=== PATIENT | male | born 1950 | race Two or more races ===

== ENCOUNTER 2018-01-12 13:26 | Inpatient (IN) | payer MEDICARE ==
[~2018-01-12] VITALS: Ht 160 cm; Wt 69.4 kg
--- NOTE | 2018-01-12 14:04 | NUR ---
PATIENT TO ED DT CHEST PAIN, 04/24, SHARP, NON RADIATING SINCE YESTERDAY. PATIENT IS AWAKE AND ALERT, APPEARS IN NO DISTRESS. RESPIRATION EVEN AND UNLABORED, SKIN IS WARM TO TOUCH AND NON DIAPHORETIC. PT IS AFEBRILE. VSS. CONNECTED OT TO TELE MONITOR. EKG DONE
[2018-01-12 14:05] LABS: BASOPHILS # (AUTO) 0.3 /CMM (0.0-0.2); BASOPHILS % (AUTO) 2.8 % (0.0-2.0); EOSINOPHILS % (AUTO) 0.7 % (0.0-6.0); HEMATOCRIT 38 % (39-51); HEMOGLOBIN 12.7 g/dL (13.5-17.5); LYMPHOCYTES % (AUTO) 10.2 % (20.0-44.0); MEAN CORPUSCULAR HGB CONC 33 g/dl (31.0-36.0); MEAN CORPUSCULAR VOLUME 78 fL (80-96); MONOCYTES # (AUTO) 0.9 /CMM (0.1-1.30); MONOCYTES % (AUTO) 9.1 % (2.0-12.0); NEUTROPHILS # (AUTO) 7.1 /CMM (1.8-8.9); NEUTROPHILS % (AUTO) 77.2 % (43.0-81.0); PLATELET COUNT (AUTO) 197 /CMM (150-450); RDW COEFFICIENT OF VARIATION 16.4 (11.5-15.0); RED BLOOD CELL COUNT(AUTO) 4.84 MIL/uL (4.5-6.0); WHITE BLOOD COUNT (AUTO) 9.4 K/uL (4.3-11.0)
[2018-01-12 14:16] LABS: INR 1.21 (0.85-1.15)
[2018-01-12] MEDS ORDERED: ASPIRIN 81 MG TAB.CHEW ONE (14:30)
[2018-01-12] MEDS ORDERED: ASPIRIN 81 MG TAB.CHEW PO ONE (14:30)
--- NOTE | 2018-01-12 14:35 | NUR ---
CALLED NURSING PATIENTS TRANSPORTER AND REQUESTED A TELE BED FOR THIS PT.
[2018-01-12 14:43] LABS: BILIRUBIN,DIRECT 0.4 mg/dL (0.0-0.2); CALCIUM, SERUM 8.6 mg/dL (8.5-10.1); CREATININE 1.2 mg/dL (0.6-1.3); POTASSIUM 3.8 mmol/L (3.5-5.1); TOTAL PROTEIN, SERUM 8.7 g/dL (6.4-8.2)
[2018-01-12 14:45] LABS: TROPONIN I 0.038 ng/mL (0.00-0.056)
[2018-01-12] MEDS ORDERED: NITROGLYCERIN 0.4 MG/TAB BOTTLE SL ONE (15:00)
[2018-01-12] MEDS ORDERED: PIOG15TA8 PO (15:04)
[2018-01-12] MEDS ORDERED: SPIR25TA6 PO (15:04)
[2018-01-12] MEDS ORDERED: DIGO125T PO (15:04)
[2018-01-12] MEDS ORDERED: TIOT18CA3 IH (15:04)
[2018-01-12] MEDS ORDERED: METF-441 PO (15:04)
[2018-01-12] MEDS ORDERED: CLOP75TA15 PO (15:04)
[2018-01-12] MEDS ORDERED: ASPI-1169 PO (15:04)
[2018-01-12] MEDS ORDERED: LOSA50TA21 PO (15:04)
[2018-01-12] MEDS ORDERED: FURO-144 PO (15:04)
[2018-01-12] MEDS ORDERED: ISOS10TA2 PO (15:09)
--- NOTE | 2018-01-12 15:09 | NUR ---
PT IS ASSIGNED TO [facility], PT IS DIAGNOSED WITH CHEST PAIN, AND DR GODOY IS THE ACCEPTING MD.
[2018-01-12] MEDS ORDERED: NITROGLYCERIN 0.4 MG/TAB BOTTLE ONE (15:12)
--- NOTE | 2018-01-12 15:17 | NUR ---
REPORT GIVEN TO BRITTNEE MEDINA FOR YAMILA
--- NOTE | 2018-01-12 15:21 | NUR ---
NITROGLYCERINE #2 GIVEN SL BE=826/103 PAIN=6/10
--- NOTE | 2018-01-12 15:26 | NUR ---
3RD NITRO 0.4MG SL GIVEN UY=853/77 PAIN=5/10
[2018-01-12] MEDS ORDERED: ONDANSETRON HCL/PF 4 MG/2 ML VIAL ONE (15:43)
[2018-01-12] MEDS ORDERED: MORPHINE SULFATE INJ 4 MG/ML DISP.SYRIN ONE (15:44)
[2018-01-12 16:00] VITALS: BP 137/97
[2018-01-12] MEDS ORDERED: ONDANSETRON HCL/PF 4 MG/2 ML VIAL IV ONE (16:00)
[2018-01-12] MEDS ORDERED: MORPHINE SULFATE INJ 2 MG/ML DISP.SYRIN IV ONE (16:00)
--- NOTE | 2018-01-12 16:22 | NUR ---
Tele/RN - Admission Received patient from ER awake, A/O x 4, kosovan speaking, midlevel provider at bedside, admitted for Chest pain, labs reviewed, initial troponin was negative, CXR shows cardiomegaly. Tele shows v-paced 92, c/o left sided chest pain TX=5/10, was given Nitro SL and ASA po in ER. Patient oriented to room and use of call light. All belongings accounted. Patient ambulatory with steady gait. Skin is intact. Awaiting for Dr. Mcdermott to place in admitting orders. Addendum: 01/12/18 at 1652 by CAROL LANCASTER RN Patient refused photo to be taken. Morphine sulfate 4 mg IVP was also given in Er to relieve chest pain.
[2018-01-12] MEDS ORDERED: DEXTROSE 50%-WATER 50 ML DISP.SYRIN IV PRN (16:30)
[2018-01-12] MEDS ORDERED: ONDANSETRON HCL/PF 4 MG/2 ML VIAL IVP PRN (16:30)
[2018-01-12] MEDS ORDERED: Z GUARD REMEDY 2 OZ OINT TP PRN (16:30)
[2018-01-12] MEDS ORDERED: MAG HYDROX/AL HYDROX/SIMETH 30 ML UDC PO PRN (16:30)
[2018-01-12] MEDS ORDERED: MORPHINE SULFATE INJ 2 MG/ML DISP.SYRIN IV PRN (16:30)
[2018-01-12] MEDS ORDERED: ACETAMINOPHEN 325 MG TABLET PO PRN (16:30)
[2018-01-12] MEDS ORDERED: MAGNESIUM HYDROXIDE 30 ML UDC PO PRN (16:30)
[2018-01-12] MEDS ORDERED: HYDROCODONE/APAP 5/325MG 1 EACH TABLET PO PRN (16:30)
[2018-01-12] MEDS: BLOOD SUGAR DIAGNOSTIC 1 EACH STRIP VI SCH ×2 (17:19→21:42)
--- NOTE | 2018-01-12 17:51 | NUR ---
MATERIAL LIAISON CLOSING NOTES Patient in bed, resting comfortably with at bedside. Denies chest pain at this moment. Patient for echo complete, A.M. Labs. Patient and updated with plan of care. Safety measures in place. Bed in lowest position with call light within reach. Will endorse to oncoming nurse.
[2018-01-12] MEDS: INSULIN REGULAR, HUMAN 100 UNIT/ML 3 ML VIAL SQ PRN (19:01)
--- NOTE | 2018-01-12 19:30 | NUR ---
GASOLINE PLANT OPERATOR NOTES RECEIVED RESTING COMFORTABLY ON BED,A/O X4,SPEAK EGYPTIAN, AT BEDSIDE.CLAIMED SLIGHT CHEST PAIN 4/10 ON PAIN SCALE AND ITS TOLERABLE.SALINE LOCK RFA INTACT AND PATENT.V PACING ON TELE MONITOR.RATE OF 85.CALL LIGHT IN REACH,NEEDS ANTICIPATED.
[2018-01-12 20:00] VITALS: BP 132/99
--- NOTE | 2018-01-12 21:00 | NUR ---
REPAIR SERVICE CLERK NOTES STARTED ON LOVENOX 40MG SQ GIVEN ON RLQ.
[2018-01-12] MEDS: ENOXAPARIN SODIUM 40 MG/0.4 ML DISP.SYRIN SQ SCH (21:06)
[2018-01-12] MEDS: NITROGLYCERIN PACKET 1 GM PACKET TOP SCH (21:06)
[2018-01-12] MEDS: *INSULIN REGULAR(HUMULIN R)HUM 100 UNIT/ML VIAL SQ PRN (21:48)
[2018-01-12 22:00] VITALS: BP 132/99
[2018-01-12] MEDS ORDERED: ZOLPIDEM TARTRATE 5 MG TABLET PO PRN (22:00)
--- NOTE | 2018-01-12 22:00 | NUR ---
EDGER AUTOMATIC NOTES ACCU-CHECK BLOOD SUGAR CHECK 199,COVERED WITH HUMULIN R 3 UNITS PER SLIDING SCALE.
[2018-01-13] VITALS: BP 129/91
--- NOTE | 2018-01-13 01:00 | NUR ---
MINE ENVIRONMENTAL ENGINEER NOTES SLEEPING THIS TIME, AT BEDSIDE
[2018-01-13 04:00] VITALS: BP_SYST 124; BP_SYST 126; BP_DIAS 96
--- NOTE | 2018-01-13 05:30 | NUR ---
SPECIAL CLASS WELDER NOTES ACCU-CHECK BLOOD SUGAR CHECK 122,NO INSULIN COVERAGE
[2018-01-13] MEDS: NITROGLYCERIN PACKET 1 GM PACKET TOP SCH ×3 (05:37→21:27)
[2018-01-13] MEDS: BLOOD SUGAR DIAGNOSTIC 1 EACH STRIP VI SCH ×4 (05:39→22:43)
[2018-01-13 06:25] LABS: BASOPHILS # (AUTO) 0.1 /CMM (0.0-0.2); BASOPHILS % (AUTO) 0.7 % (0.0-2.0); EOSINOPHILS % (AUTO) 0.1 % (0.0-6.0); HEMATOCRIT 37 % (39-51); HEMOGLOBIN 11.8 g/dL (13.5-17.5); LYMPHOCYTES # (AUTO) 0.9 /CMM (0.8-4.8); LYMPHOCYTES % (AUTO) 10.2 % (20.0-44.0); MEAN CORPUSCULAR HGB CONC 32 g/dl (31.0-36.0); MEAN CORPUSCULAR VOLUME 79 fL (80-96); MONOCYTES # (AUTO) 0.9 /CMM (0.1-1.30); MONOCYTES % (AUTO) 9.9 % (2.0-12.0); NEUTROPHILS % (AUTO) 79.1 % (43.0-81.0); PLATELET COUNT (AUTO) 185 /CMM (150-450); RDW COEFFICIENT OF VARIATION 17.7 (11.5-15.0); RED BLOOD CELL COUNT(AUTO) 4.61 MIL/uL (4.5-6.0); WHITE BLOOD COUNT (AUTO) 8.8 K/uL (4.3-11.0)
[2018-01-13 06:34] LABS: CALCIUM, SERUM 8.3 mg/dL (8.5-10.1); MAGNESIUM 1.9 mg/dL (1.8-2.4); PHOSPHORUS 3.4 mg/dL (2.5-4.9); POTASSIUM 3.8 mmol/L (3.5-5.1)
--- NOTE | 2018-01-13 06:40 | NUR ---
SALES COORDINATOR NOTES SLEPT WELL AT [facility].DENIES CHEST PAIN.ADVISED NOT TO EAT BREAKFAST 'TILL SEEN BY DUTY ENGINEER.TELE READING V-PACING 86.IN NO ACUTE DISTRESS.WILL ENDORSE TO DAY NURSE FOR YAMIAL.
--- NOTE | 2018-01-13 07:25 | NUR ---
MAIL CLERK BILLS OPENING NOTES RECEIVED PATIENT AWAKE IN BED IN NO ACUTE SIGNS OF DISTRESS. AT BEDSIDE. A/O X4, SPEAK ALBANIAN ONLY, DENIES PAIN OR ANY DISCOMFORTS AT THIS TIME. ON ROOM AIR, BREATHING EVEN AND UNLABORED, NO SOB NOTED. IV ACCESS ON RFA G#20 INTACT AND PATENT. ON TELE-MONITOR WITH CURRENT READING OF V-PACING WITH HR OF 72, NO C/O CHEST PAIN VOICED AT THIS TIME. HOB ELEVATED. BED IN LOW/LOCKED POSITION WITH B/L UPPER SIDE-RAILS UP X2. CALL LIGHT IN REACH. WILL CONTINUE TO MONITOR PT. .
[2018-01-13] MEDS ORDERED: METFORMIN 850 MG TABLET PO SCH (07:30)
[2018-01-13 07:51] LABS: TROPONIN I 0.034 ng/mL (0.00-0.056)
--- NOTE | 2018-01-13 07:55 | NUR ---
RN NOTES PATIENT FOR CT [facility] WITH 3D THIS MORNING. CALLED RESIDENTIAL REAL ESTATE SALES MANAGER AND WAS INFORMED THAT PT SHOULD BE NPO AND TO GIVE AM MEDS WITH SMALL AMOUNT OF WATER AND NOT TO GIVE GLUCOPHAGE.
[2018-01-13 08:00] VITALS: BP 139/84
[2018-01-13 08:02] LABS: THYROID STIMULATING HORMONE 3.77 uIU/mL (0.358-3.74)
[2018-01-13] MEDS: ASPIRIN 325 MG TABLET PO SCH (08:10)
[2018-01-13] MEDS: PIOGLITAZONE HCL 15 MG TABLET PO SCH (08:10)
[2018-01-13] MEDS: FUROSEMIDE 40 MG TABLET PO SCH (08:11)
[2018-01-13] MEDS: LOSARTAN POTASSIUM 50 MG TABLET PO SCH ×2 (08:11→21:26)
[2018-01-13] MEDS: SPIRONOLACTONE 25 MG TABLET PO SCH (08:12)
[2018-01-13] MEDS: ISOSORBIDE DINITRATE (10MG) 10 MG TABLET PO SCH ×2 (08:12→22:44)
[2018-01-13] MEDS ORDERED: IOHEXOL-350 100 ML VIAL IV ONE (10:16)
[2018-01-13] MEDS ORDERED: IV NS 0.9% 500 ML IV ONE (10:16)
[2018-01-13] MEDS ORDERED: CT SWABBABLE VALVE TRANS SET 1 EA INFUS.SET MC ONE (10:16)
--- NOTE | 2018-01-13 11:16 | NUR ---
RN NOTES PATIENT RETURNED FROM [facility] VIA WHEELCHAIR IN NO ACUTE SIGNS OF DISTRESS. SPOKE TO BOWLING ALLEY OPERATOR CHIDI AND ICU NURSE, THEY SAID THAT GLUCOPHAGE SHOUL BE HELD X 48HRS THEN RE-START ON TUESDAY MORNING, 01/15/2018. WILL CONTINUE TO MONITOR.
--- NOTE | 2018-01-13 12:14 | NUR ---
RN NOTES PT WITH B/S OF 150MGD AT 1200, PATIENT REFUSED INSULIN COVERAGE SAYING THAT IT'S NOT THAT HIGH. WILL CONTINUE TO MONITOR.
[2018-01-13 16:00] VITALS: BP 124/93
[2018-01-13] MEDS: INSULIN REGULAR, HUMAN 100 UNIT/ML 3 ML VIAL SQ PRN (17:28)
--- NOTE | 2018-01-13 17:48 | NUR ---
Patient speaks Lithuanian, he is alert and pleasant. He lives locally with his . He is ambulatory and independent with adl's. Has no DME or homehealth reported. Family will provide ride when discharge. Addendum: 01/13/18 at 1748 by FLORECITA HOROWITZ RN Amended: Links added.
[2018-01-13] MEDS ORDERED: CLOPIDOGREL BISULFATE 75 MG TABLET PO SCH (18:00)
[2018-01-13] MEDS ORDERED: DIGOXIN 0.125 MG TABLET PO SCH (18:00)
--- NOTE | 2018-01-13 18:18 | NUR ---
MS RN CLOSING NOTES PATIENT SITTING IN CHAIR IN HIS ROOM WITH SITTING BESIDE HIM. A/O X4, SPEAK THAI ONLY, NO C/O CHEST PAIN THROUGHOUT THE DAY. ON ROOM AIR, BREATHING EVEN AND UNLABORED, NO SOB NOTED. IV ACCESS ON RFA G#18 INTACT AND PATENT, FLUSHES EASILY. HOB ELEVATED. BED IN LOW/LOCKED POSITION WITH B/L UPPER SIDE-RAILS UP X2. CALL LIGHT WITHIN REACH. ALL NEEDS AND CARE ATTENDED WELL. WILL ENDORSED TO COUNTER HELP NURSE FOR YAMILA.
--- NOTE | 2018-01-13 19:30 | NUR ---
MS RN OPENING NOTES: PATIENT NI BED, AOX4, ON ROOM AIR, BREATHING EVEN AND UNLABORED. APPEARS CALM AND IN NO DISTRESS. DENIES PAIN/ CHEST PAIN. PIV OVER RFA G 18 INTACT AND PATENT TO FLUSH. PROVIDED FOR COMFORT AND SAFETY. BED IN LOWEST AND LOCKED POSITION, SIDERAILS UP X 3, CALL LIGHT WITHIN REACH. WILL CONT TO MONITOR.
[2018-01-13 20:00] VITALS: BP 125/87
[2018-01-13] MEDS: ENOXAPARIN SODIUM 40 MG/0.4 ML DISP.SYRIN SQ SCH (21:34)
[2018-01-13 22:45] VITALS: BP 125/71
[2018-01-13] MEDS: *INSULIN REGULAR(HUMULIN R)HUM 100 UNIT/ML VIAL SQ PRN (22:49)
--- NOTE | 2018-01-13 22:50 | NUR ---
RN NOTES: BLOOD SUGAR CHECKED AT 132, HOWEVER, PATIENT REFUSED INSULIN COVERAGE AT THIS TIME. RISK AND BENEFITS EXPLAINED.
--- NOTE | 2018-01-14 00:30 | NUR ---
RN NOTES: INFORMED ARELIS RT REGARDING PATIENT'S SCHEDULED Q8 BREATHING TREATMENTS. PER RT, SHE WILL CHECK ON PATIENT TO GIVE BREATHING TREATMENT IF NEEDED AT THIS TIME. PATIENT ASLEEP NOW, BREATHING EVEN AND UNLABORED, BREATH SOUNDS CLEAR TO AUSCULTATION.
[2018-01-14] MEDS: NITROGLYCERIN PACKET 1 GM PACKET TOP SCH ×2 (05:00→13:33)
[2018-01-14 06:17] LABS: BASOPHILS # (AUTO) 0.1 /CMM (0.0-0.2); BASOPHILS % (AUTO) 1.1 % (0.0-2.0); EOSINOPHILS % (AUTO) 1.4 % (0.0-6.0); HEMATOCRIT 34 % (39-51); HEMOGLOBIN 10.9 g/dL (13.5-17.5); LYMPHOCYTES # (AUTO) 1.1 /CMM (0.8-4.8); LYMPHOCYTES % (AUTO) 13.4 % (20.0-44.0); MEAN CORPUSCULAR HGB CONC 32 g/dl (31.0-36.0); MEAN CORPUSCULAR VOLUME 79 fL (80-96); MONOCYTES # (AUTO) 0.8 /CMM (0.1-1.30); MONOCYTES % (AUTO) 9.7 % (2.0-12.0); NEUTROPHILS # (AUTO) 6.2 /CMM (1.8-8.9); NEUTROPHILS % (AUTO) 74.4 % (43.0-81.0); PLATELET COUNT (AUTO) 184 /CMM (150-450); RDW COEFFICIENT OF VARIATION 17.8 (11.5-15.0); RED BLOOD CELL COUNT(AUTO) 4.35 MIL/uL (4.5-6.0); WHITE BLOOD COUNT (AUTO) 8.3 K/uL (4.3-11.0)
[2018-01-14] MEDS: BLOOD SUGAR DIAGNOSTIC 1 EACH STRIP VI SCH ×2 (06:21→12:29)
[2018-01-14 06:37] LABS: ALBUMIN 3.1 g/dL (3.4-5.0); BILIRUBIN,TOTAL 0.8 mg/dL (0.2-1.0); CALCIUM, SERUM 8.4 mg/dL (8.5-10.1); CREATININE 1.1 mg/dL (0.6-1.3); MAGNESIUM 1.6 mg/dL (1.8-2.4); PHOSPHORUS 2.9 mg/dL (2.5-4.9); POTASSIUM 3.5 mmol/L (3.5-5.1); TOTAL PROTEIN, SERUM 6.9 g/dL (6.4-8.2)
[2018-01-14 06:47] LABS: TROPONIN I 0.056 ng/mL (0.00-0.056)
--- NOTE | 2018-01-14 06:47 | NUR ---
MS RN CLOSING NOTES: PATIENT IN BED, AOX4, ON ROOM AIR, BREATHING EVEN AND UNLABORED. APPEARS CALM AND IN NO DISTRESS. DENIES PAIN. AM BLOOD SUGAR CHECKED AT 118 MG/DL. DUE MEDS GIVEN. PROVIDED FOR COMFORT AND SAFETY. BED IN LOWEST AND LOCKED POSITION, SIDERAILS UP X 2, CALL LIGHT WITHIN REACH. WILL ENDORSE TO AM RN FOR YAMILA.
--- NOTE | 2018-01-14 07:30 | NUR ---
RECEIVED PT. IN AM ALERT AND ORIENTED X4.MALAYSIAN SPEAKING.NO COMPLAINTS OFFERED.
[2018-01-14] MEDS: IPRATROPIUM NEB FS 0.5 MG/2.5 ML AMPUL.NEB NEB SCH ×2 (07:56→15:30)
[2018-01-14 08:00] VITALS: BP 139/90
[2018-01-14] MEDS ORDERED: METFORMIN 850 MG TABLET PO SCH (08:00)
[2018-01-14] MEDS: METFORMIN 850 MG TABLET PO SCH ×2 (08:00→08:55)
[2018-01-14] MEDS: ASPIRIN 325 MG TABLET PO SCH (08:55)
[2018-01-14] MEDS: FUROSEMIDE 40 MG TABLET PO SCH (08:55)
[2018-01-14] MEDS: PIOGLITAZONE HCL 15 MG TABLET PO SCH (08:56)
[2018-01-14] MEDS: SPIRONOLACTONE 25 MG TABLET PO SCH (08:56)
[2018-01-14] MEDS: LOSARTAN POTASSIUM 50 MG TABLET PO SCH (08:56)
[2018-01-14] MEDS: ISOSORBIDE DINITRATE (10MG) 10 MG TABLET PO SCH (08:56)
--- NOTE | 2018-01-14 10:30 | NUR ---
DR. GODOY AND DR. KENDRICK IN TO SEE PT.
--- NOTE | 2018-01-14 11:00 | NUR ---
IN PT. RM. ASKING ABOUT DISCHARGE,STATES WILKINS SAID SPOUSE MAY GO HOME TODAY.
--- NOTE | 2018-01-14 11:30 | NUR ---
RN CALLING DR. GODOY ABOUT DC AND DEFERRED TO DR. KENDRICK.
[2018-01-14] MEDS: INSULIN REGULAR, HUMAN 100 UNIT/ML 3 ML VIAL SQ PRN (12:31)
[2018-01-14] MEDS ORDERED: MAGNESIUM OXIDE 400 MG TABLET PO ONE ×2 (13:00)
[2018-01-14 13:33] VITALS: BP 122/87
[2018-01-14] MEDS ORDERED: SOD FERRIC GLUC 125 MG in IV NS 0.9% 100 ML IV SCH (14:00)
--- NOTE | 2018-01-14 15:45 | NUR ---
[address] KENDRICK-RECEIVED DISCHARGE ORDER. HEP LOCK OUT,DC INSTRUCTIONS GIVEN,BELONGING SHEET SIGNED.GIVEN ALL INFO. REFUSING [facility]. PRINT OUT OF DC MEDS-ALL ALL PAPERS GIVEN TO .TAKEN TO LOBBY VIA W/C ACCOMPANIED BY MARKER MACHINE AND .
[2018-01-15] MEDS ORDERED: METFORMIN 850 MG TABLET PO SCH ×2 (08:00)
== END 2018-01-14 16:10 | disposition home or self-care (01) | DRG 303 ==
LOC: ER 13:32 → TELE 15:39 → MED 01-13 07:53
PROVIDERS: ADMIT Internal Medicine; ATTEND Internal Medicine
DX: I25.10 Atherosclerotic heart disease of native coronary artery without angina pectoris (principal); J44.9 Chronic obstructive pulmonary disease, unspecified; I11.0 Hypertensive heart disease with heart failure; I50.9 Heart failure, unspecified; E11.9 Type 2 diabetes mellitus without complications; D50.9 Iron deficiency anemia, unspecified; I35.0 Nonrheumatic aortic (valve) stenosis; M19.90 Unspecified osteoarthritis, unspecified site; Z95.810 Presence of automatic (implantable) cardiac defibrillator; Z79.84 Long term (current) use of oral hypoglycemic drugs
CPT/HCPCS: 36415; 71045-TC; 75574; 80048-TC; 80053-TC; 80061-TC; 80076-TC; 80162-TC; 82306; 82728-TC; 82962-TC; 83540-TC; 83735-TC; 84100-TC; 84439-TC; 84443-TC; 84484-TC; 85025-TC; 85730-TC; 87081-TC; 93307-TC; A4606; J1650; J1815; J2270; J2405; J2916; J7030; J7040; Q9967; Z7610